=== PATIENT | male | born 1950 | race Caucasian/White ===

== ENCOUNTER 2025-02-23 10:59 | Day surgery (SDC) | payer MEDICARE, SELFPAY ==
[2025-02-23] VITALS (9 sets, daily range): BP systolic 127–156; BP diastolic 66–90; BMI 32.9
[2025-02-23] MEDS: NSS 294 ML IV (12:29)
--- NOTE | 2025-02-23 17:22 | ITS.CL.PN ---
Factory Representative - Procedure Note
Procedure
Procedure Note:
CARDIAC CATHETERIZATION REPORT
Date of Procedure: 02/23/2025
Referring: Dr. Bryson Sheets MD
Indication: Accelerating angina
PROCEDURE(S)
1. left heart catheterization
2. coronary angiography
ACCESS: 6F right radial artery (closure: radial band)
CATHETERS
1. 6F JR4
2. 6F JL3.5
MODERATE SEDATION: 25 minutes of moderate sedation was utilized. An independent lpn or medical assistant was present to assist with and help manage the patient's level of consciousness and physiologic status.
HEMODYNAMIC DATA
LV 145/10 (EDP 16) mmHg
AO 139/74 (mean 102) mmHg
CORONARY ANGIOGRAPHY
Dominance: Right
LM: Large, normal
LAD: Large vessel giving rise to a early-rising, branching, moderate caliber D1/ramus before wrapping around the apex. There are mild luminal irregularities only.
LCx: Large vessel giving rise to a large ramus/OM1, small OM 2, and moderate caliber LPL branch. There are trivial luminal irregularities only.
RCA: Large vessel giving rise to a moderate caliber RPDA and 2 small RPL branches. There is mild ~30% calcific stenosis at the RCA ostium with no pressure dampening and otherwise trivial luminal irregularities.
RADIATION: dose 358 mGy; DAP 22.8 Gy*cm2; fluoroscopy time 5.5 min
CONCLUSIONS
1. Minimal coronary artery disease in a right dominant system
2. Mildly elevated LV filling pressure and no aortic stenosis
RECOMMENDATIONS
1. Primary prevention of coronary artery disease
2. Workup for etiology of shortness of breath and chest discomfort not related to epicardial coronary artery disease, aortic stenosis, or elevated LV filling pressures.
Copy to: Dr. Bryson Sheets MD (heading machine operator); Dr. Taz Burdick DO (PCP)
Signed: Mir Potts MD, PhD
== END 2025-02-23 16:45 | disposition home or self-care (01) ==
LOC: CATH 10:59
PROVIDERS: ATTENDING PHYSICIAN Student in an Organized Health Care Education/Training Program; FAMILY PHYSICIAN Family Medicine; OTHER PHYSICIAN Internal Medicine Cardiovascular Disease
DX: I25.10 Atherosclerotic heart disease of native coronary artery without angina pectoris (principal); R07.89 Other chest pain; R06.02 Shortness of breath; I10 Essential (primary) hypertension; E78.5 Hyperlipidemia, unspecified; R42 Dizziness and giddiness
CPT/HCPCS: 99152; 99153; 93458; C1769; C1894; Q9967